=== PATIENT | female | born 1980 | race Caucasian/White ===

== ENCOUNTER 2019-07-20 14:00 | Inpatient (IN) | payer MEDICAID ==
[~2019-07-20] VITALS: Ht 160 cm; Wt 142.2 kg
[2019-07-20] MEDS: LEVOTHYROXINE 75 MCG TABLET PO SCH (06:00)
[2019-07-20 15:20] VITALS: BP 142/83
[2019-07-20] MEDS ORDERED: OMEP20TA63 PO (15:27)
[2019-07-20] MEDS ORDERED: ACYC800T PO (15:27)
[2019-07-20] MEDS ORDERED: TIZA4TAB2 PO (15:27)
[2019-07-20] MEDS ORDERED: PRAV40TA2 PO (15:27)
[2019-07-20] MEDS ORDERED: LEVO75TA PO (15:27)
[2019-07-20] MEDS: ACYCLOVIR 200 MG CAPSULE. PO SCH (15:59)
[2019-07-20] MEDS ORDERED: ACYCLOVIR 200 MG CAPSULE. PO SCH (16:00)
[2019-07-20] MEDS: amLODIPine BESYLATE 5 MG TABLET PO SCH (16:04)
[2019-07-20] MEDS: ASPIRIN ENTERIC COATED 325 MG TABLET.DR. PO SCH (16:04)
[2019-07-20] MEDS: PANTOPRAZOLE 40 MG TABLET.DR. PO SCH (16:05)
--- NOTE | 2019-07-20 16:23 | NUR ---
The patient, CARLO CAMPBELL, 39 y/o, F admitted by JAZZ FUNG MD, was given written information regarding hospital policies, unit procedures and contact persons. Valuables were checked and left with patient in room. Dr. Fung notified of admission. Dr. Taveras made aware of consult. Charge nurse completed stroke scale on admission. Nurse from [facility] reported that patient took 3 baby aspirins at [facility]. Patient reported taking daily medications this morning.
--- NOTE | 2019-07-20 17:08 | PDOC1 ---
History and Physical Date of Admission Date of Admission DATE: 07/20/19 TIME: 17:02 Source Source: Chart review, Patient History of Present Illness History of Present Illness Ms. Salter went to her primary care today, Dr. Elizabeth, who sent her to the ER due to new slow speech and possible facial droop. CT angio was done at [place], Dr. Frank called me for transfer, as patient may need neuro eval and MRI for acute change, new dysarthria. 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 No leg or arm weakness, some right favial weakness with sensation change to right side of face compliant with meds, Past Medical History Cardiovascular: HTN, Hyperlipidemia Psych: No pertinent hx Musculoskeletal: low back pain Social History Smoke: <1 pack per day ALCOHOL: rare Drugs: Other (quit meth) Current Medications Current Medications Current Medications Levothyroxine Sodium (Synthroid) 75 mcg DAILY06 PO ; Start 07/20/19 at 06:00 Tizanidine HCl (Zanaflex) 4 mg PRN TID PRN PO MUSCLE SPASMS; Start 07/20/19 at 15:45 Acyclovir (Zovirax) 200 mg DAILY PO ; Start 07/20/19 at 16:00; Stop 07/20/19 at 15:47; Status DC Pantoprazole Sodium (Protonix) 40 mg DAILYAC PO ; Start 07/20/19 at 16:30 Atorvastatin Calcium (Lipitor) 10 mg QHS PO ; Start 07/20/19 at 21:00 Aspirin (Ecotrin) 325 mg DAILYWBKFT PO ; Start 07/20/19 at 16:30 Amlodipine Besylate (Norvasc) 2.5 mg DAILY PO ; Start 07/20/19 at 16:30 Acyclovir (Zovirax) 800 mg DAILY PO ; Start 07/20/19 at 16:00 Active Scripts Active Reported Tizanidine Hcl 4 Mg Tablet 4 Mg PO TID PRN Acyclovir 800 Mg Tablet 800 Mg PO DAILY Pravastatin Sodium 40 Mg Tablet 40 Mg PO DAILY Prilosec Otc (Omeprazole Magnesium) 20 Mg Tablet. 20 Mg PO DAILY Synthroid (Levothyroxine Sodium) 75 Mcg Tablet 75 Mcg PO DAILYAC Allergies Allergies: Coded Allergies: pregabalin (Verified Allergy, Intermediate, 07/20/19) ROS General: YES: Fatigue, Malaise; No: Chills, Night Sweats, Appetite, Other PSYCHOLOGICAL ROS: YES: Sleep disturbances; No: Anxiety, Behavioral Disorder, Concentration difficultie, Decreased libido, Depression, Disorientation, Hallucinations, Hostility, Irritablity, Memory difficulties, Mood Swings, Obsessive thoughts, Physical abuse, Sexual abuse, Suicidal ideation, Other Eyes: No Blurry vision, No Decreased vision, No Double vision, No Dry eyes, No Excessive tearing, No Eye Pain, No Itchy Eyes, No Loss of vision, No Photophobia, No Scotomata, No Uses contacts, No Uses glasses, No Other HEENT: No: Heacaches, Visual Changes, Hearing change, Nasal congestion, Nasal discharge, Oral lesions, Sinus pain, Sore Throat, Epistaxis, Sneezing, Snoring, Tinnitus, Vertigo, Vocal changes, Other Respiratory: No: Cough, Hemoptysis, Orthopnea, Pleuritic Pain, Shortness of breath, SOB with excertion, Sputum Changes, Stridor, Tachypnea, Wheezing, Other Cardiovascular: No Chest Pain, No Palpitations, No Orthopnea, No Paroxysmal Noc. Dyspnea, No Edema, No Lt Headedness, No Other Gastrointestinal: No Nausea, No Vomiting, No Abdominal Pain, No Diarrhea, No Constipation, No Melena, No Hematochezia, No Other Genitourinary: No Dysuria, No Frequency, No Incontinence, No Hematuria, No Retention, No Discharge, No Urgency, No Pain, No Flank Pain, No Other, No , No , No , No , No , No , No Musculoskeletal: No Gait Disturbance, No Joint Pain, No Joint Stiffness, No Joint Swelling, No Muscle Pain, No Muscular Weakness, No Pain In:, No Swelling In:, No Other Neurological: Yes Numbness/Tingling, Yes Speech Problems; No Behavorial Changes, No Bowel/Bladder ControlChng, No Confusion, No Dizziness, No Gait Disturbance, No Headaches, No Impaired Coord/balance, No Memory Loss, No Seizures, No Tremors, No Visual Changes, No Weakness, No Other Skin: Yes Dry Skin; No Eczema, No Hair Changes, No Lumps, No Mole Changes, No Mottling, No Nail Changes, No Pruritus, No Rash, No Skin Lesion Changes, No Other, No Acne Physical Exam General: Alert, Oriented X3, Cooperative, No acute distress HEENT: Atraumatic, PERRLA, Mucous membr. moist/pink Lungs: Clear to auscultation, Normal air movement Heart: S1S2, no murmurs Abdomen: Soft (obese, ) Rectal Exam: not examined Extremities: No cyanosis, No edema Skin: No rashes Neuro: Normal speech Psych/Mental Status: Mental status NL, Mood NL Vitals Vitals Vital Signs Date Time Temp Pulse Resp B/P (MAP) Pulse Ox O2 Delivery O2 Flow Rate FiO2 07/20/19 15:27 Room Air 07/20/19 15:20 98.5 65 18 142/83 (102) 96 98.5 VTE Prophylaxis Ordered VTE Prophylaxis Devices: No VTE Pharmacological Prophylaxi: Yes Assessment/Plan Assessment/Plan new dysarthria, parathesisa face NIH stroke 5, consult neuro, MRI brain, cont statin, pt and ot and speech morbid obese admit JAZZ FUNG MD Jul 20, 2019 17:08
[2019-07-20] MEDS ORDERED: DOCUSATE SODIUM 100 MG CAPSULE. PO PRN (17:15)
[2019-07-20] MEDS ORDERED: ZOLPIDEM 5 MG TABLET. PO PRN (17:15)
[2019-07-20] MEDS: LIDOCAINE (700MG/PATCH) PATCH. TD SCH (17:59)
[2019-07-20 19:07] LABS: BASO # 0.1 x10^3/uL (0.0-0.2); BASO % 1 % (0-3); EOS # 0.2 x10^3/uL (0.0-0.7); EOS % 2 % (0-3); HEMATOCRIT 38.7 % (36.0-47.0); HEMOGLOBIN 13.1 g/dL (12.0-15.5); LYMPH # 2.2 x10^3/uL (1.0-4.8); LYMPH % 21 % (24-48); MEAN CORPUSCULAR HEMOGLOBIN 29 pg (25-35); MEAN CORPUSCULAR HGB CONC 34 g/dL (31-37); MEAN CORPUSCULAR VOLUME 86 fL (79-100); MONO # 0.5 x10^3/uL (0.0-1.1); MONO % 5 % (0-9); NEUT # 7.6 x10^3/uL (1.8-7.7); NEUT % 72 % (31-73); PLATELET COUNT 426 x10^3/uL (140-400); RED CELL DISTRIBUTION WIDTH 15.1 % (11.5-14.5); WHITE BLOOD COUNT 10.6 x10^3/uL (4.0-11.0)
[2019-07-20 19:22] LABS: ALBUMIN 3.3 g/dL (3.4-5.0); ALBUMIN/GLOBULIN RATIO 0.8 (1.0-1.7); CALCIUM 9.2 mg/dL (8.5-10.1); CREATININE 0.8 mg/dL (0.6-1.0); GFR 79.4; POTASSIUM 3.9 mmol/L (3.5-5.1); TOTAL BILIRUBIN 0.5 mg/dL (0.2-1.0); TOTAL PROTEIN 7.2 g/dL (6.4-8.2)
[2019-07-20 19:55] VITALS: BP 128/79
[2019-07-20] MEDS: ENOXAPARIN 40 MG/0.4 ML SYRINGE. SQ SCH (20:50)
[2019-07-20] MEDS ORDERED: ATORVASTATIN CALCIUM 10 MG TABLET. PO SCH (21:00)
[2019-07-20 23:06] VITALS: BP 117/76
[2019-07-21] MEDS ORDERED: MORPHINE SULFATE 4 MG/ML VIAL. IV PRN (02:15)
[2019-07-21] MEDS: fentaNYL PF VIAL 100 MCG/2 ML VIAL IVP PRN ×3 (02:36→09:10)
[2019-07-21 03:39] VITALS: BP 123/75
[2019-07-21] MEDS: PATCH REMOVAL. MC SCH ×2 (05:00→21:00)
[2019-07-21 05:25] LABS: CHOLESTEROL/HDL RATIO 8.3
[2019-07-21] MEDS: LEVOTHYROXINE 75 MCG TABLET PO SCH (05:36)
[2019-07-21 07:15] VITALS: BP 123/73
[2019-07-21] MEDS: PANTOPRAZOLE 40 MG TABLET.DR. PO SCH (07:30)
[2019-07-21] MEDS: LIDOCAINE (700MG/PATCH) PATCH. TD SCH (09:00)
[2019-07-21] MEDS ORDERED: HYDROcodone/APAP 10/325 1 TAB TABLET PO PRN (10:00)
[2019-07-21] MEDS ORDERED: GADOTERATE 7.5 MMOL/15ML VIAL. IVP ONE (10:15)
--- NOTE | 2019-07-21 10:16 | CONS ---
DATE OF CONSULTATION: 07/21/2019 ATTENDING PHYSICIAN: Yanna Durant MD REASON FOR CONSULTATION: The patient was seen at the request of Dr. Durant for rehab evaluation. HISTORY OF PRESENT ILLNESS: This is a 39-year-old female known to me. The patient is with chronic lower back pain from degenerative disk disease of lumbar vertebrae with right lumbar radiculitis. The patient was seen at [facility] on 07/20/2019 with slow speech of new onset and possible facial droop. CT angio was done at [facility]. The patient was transferred to [facility] for neurological evaluation and MRI scan. The patient was hospitalized at [facility] with similar problem in 2013, at that time was diagnosed as having cerebral vasculitis. The patient had a prior meth habit but stopped about 2 years ago. 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 The patient admits increased lower back pain since last night. PAST MEDICAL HISTORY: Includes hypertension and hyperlipidemia. She still smokes less than 1 pack of cigarettes per day. ALLERGIES: SHE IS KNOWN ALLERGIC TO PREGABALIN. MEDICATIONS: The patient apparently has been taking tizanidine for muscle spasm. PHYSICAL EXAMINATION: NEUROLOGIC: Today revealed young female. The patient is in no acute distress. She is alert and oriented to time, place, person, and circumstance and follows commands appropriately. She moves all 4 extremities voluntarily where she had 4+/5 grade muscle strength. Deep tendon reflexes are 1-2+ and symmetrical and she had equal perception of touch and pinprick sensation bilaterally. No obvious facial asymmetry or visual field cut noted. She had mild dysarthria. She had good coordination using both upper and lower extremities. She had tenderness to palpation over lumbar paraspinal muscles extending out to sacroiliac joint area and straight leg raising test is negative bilaterally. She is independent with bed mobility, transfers, and up walking. ASSESSMENT: Young female with chronic lower back pain with recent exacerbation. No clinical evidence of ongoing lumbar radiculopathy. The patient with new-onset mild dysarthria. The patient also with known hypertension, hyperlipidemia, smoker, obesity. RECOMMENDATIONS: Agreed the plans for physical therapy. Home when medically stable with outpatient followup. Dr. Durant, I appreciate asking me to participate in the care of this interesting patient. I will be glad to see her for followup with you on as needed basis. MYRIAM MOTLEY MD DR: PRICE/chasity JOB#: [id number] / [id number]
--- NOTE | 2019-07-21 10:55 | PDOC ---
[employer] PROGRESS NOTE Chief Complaint Chief Complaint Possible CVA History of Present Illness History of Present Illness Ms. Salter went to her primary care today, Dr. Elizabeth, who sent her to the ER due to new slow speech and possible facial droop. CT angio was done at [facility], Dr. Frank called me for transfer, as patient may need neuro eval and MRI for acute change, new dysarthria. 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 No leg or arm weakness, some right favial weakness with sensation change to right side of face compliant with meds Patient was seen and examined during his MRI. 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 Scan appeared to be negative for CVA. Awaiting input from neuro consult. Vitals/I&O Vitals/I&O: Vital Signs Date Time Temp Pulse Resp B/P (MAP) Pulse Ox O2 Delivery O2 Flow Rate FiO2 07/21/19 09:10 96 Room Air 07/21/19 07:15 98.9 73 18 123/73 (90) 98.9 I & O 07/20/19 07/20/19 07/21/19 15:00 23:00 07:00 Intake Total 0 ml Output Total 600 ml 600 ml Balance -600 ml -600 ml Physical Exam General: Alert, Oriented X3, Cooperative, No acute distress Heart: Regular rate, Normal S1, Normal S2, No murmurs Lungs: Clear Abdomen: Normal bowel sounds, Soft (obese, ), No tenderness, No hepatosplenomegaly Extremities: No clubbing, No cyanosis, No edema Skin: No rashes, No breakdown, No significant lesion Labs Labs: Laboratory Tests Test 07/20/19 18:50 07/21/19 03:20 White Blood Count 10.6 x10^3/uL (4.0-11.0) Red Blood Count 4.50 x10^6/uL (3.50-5.40) Hemoglobin 13.1 g/dL (12.0-15.5) Hematocrit 38.7 % (36.0-47.0) Mean Corpuscular Volume 86 fL (79-100) Mean Corpuscular Hemoglobin 29 pg (25-35) Mean Corpuscular Hemoglobin Concent 34 g/dL (31-37) Red Cell Distribution Width 15.1 % (11.5-14.5) Platelet Count 426 x10^3/uL (140-400) Neutrophils (%) (Auto) 72 % (31-73) Lymphocytes (%) (Auto) 21 % (24-48) Monocytes (%) (Auto) 5 % (0-9) Eosinophils (%) (Auto) 2 % (0-3) Basophils (%) (Auto) 1 % (0-3) Neutrophils # (Auto) 7.6 x10^3/uL (1.8-7.7) Lymphocytes # (Auto) 2.2 x10^3/uL (1.0-4.8) Monocytes # (Auto) 0.5 x10^3/uL (0.0-1.1) Eosinophils # (Auto) 0.2 x10^3/uL (0.0-0.7) Basophils # (Auto) 0.1 x10^3/uL (0.0-0.2) Sodium Level 140 mmol/L (136-145) Potassium Level 3.9 mmol/L (3.5-5.1) Chloride Level 102 mmol/L (98-107) Carbon Dioxide Level 26 mmol/L (21-32) Anion Gap 12 (6-14) Blood Urea Nitrogen 16 mg/dL (7-20) Creatinine 0.8 mg/dL (0.6-1.0) Estimated GFR (Cockcroft-Gault) 79.4 BUN/Creatinine Ratio 20 (6-20) Glucose Level 92 mg/dL (70-99) Calcium Level 9.2 mg/dL (8.5-10.1) Total Bilirubin 0.5 mg/dL (0.2-1.0) Aspartate Amino Transf (AST/SGOT) 16 U/L (15-37) Alanine Aminotransferase (ALT/SGPT) 23 U/L (14-59) Alkaline Phosphatase 55 U/L (46-116) Total Protein 7.2 g/dL (6.4-8.2) Albumin 3.3 g/dL (3.4-5.0) Albumin/Globulin Ratio 0.8 (1.0-1.7) Vitamin B12 Level 334 pg/mL (247-911) Thyroid Stimulating Hormone (TSH) 3.507 uIU/mL (0.358-3.74) Triglycerides Level 333 mg/dL (0-150) Cholesterol Level 248 mg/dL (0-200) LDL Cholesterol, Calculated 151 mg/dL (0-100) VLDL Cholesterol, Calculated 67 mg/dL (0-40) Non-HDL Cholesterol Calculated 218 mg/dL (0-129) HDL Cholesterol 30 mg/dL (40-60) Cholesterol/HDL Ratio 8.3 Review of Systems Review of Systems: Patient complains of generalized weakness. Patient denies SOB and N/V Assessment and Plan Assessmemt and Plan Assessment: Possible CVA, generalized motor weakness. Plan: 1. Cardiac monitoring 2. Await MRI report 3. await neuro consult 4. PT/OT 5. Labs 6. DVT prophylaxis 7. Full code Comment Review of Relevant I have reviewed the following items ghanshyam (where applicable) has been applied. Medications: Current Medications Medications (Trade) Dose Ordered Sig/Analia Route PRN Reason Start Time Stop Time Status Last Admin Dose Admin Lidocaine (Lidoderm) 1 patch DAILY TD 07/20/19 17:15 07/20/19 17:59 Miscellaneous (Lidoderm Patch Removal) 1 ea QHS MC 07/20/19 21:00 07/21/19 05:00 Enoxaparin Sodium (Lovenox 40mg Syringe) 40 mg Q24H SQ 07/20/19 21:00 07/20/19 20:50 Fentanyl Citrate (Fentanyl 2ml Vial) 50 mcg PRN Q2HR PRN IVP PAIN 07/21/19 02:30 07/21/19 09:10 Gadoterate Meglumine (Dotarem) 28 ml 1X ONCE IVP 07/21/19 10:15 07/21/19 10:16 DC 07/21/19 10:25 DEBRA GONZALEZ III DO Jul 21, 2019 10:55
[2019-07-21 11:00] VITALS: BP 144/75
--- NOTE | 2019-07-21 11:09 | RAD ---
BRAIN WO/W CONTRAST Date: 07/21/2019 5:00 AM Indication: Lower extremity weakness, stroke Comparison: CT 07/20/2019. Technique: Multiplanar multisequence MRI of the brain was performed with and without intravenous contrast using the standard protocol. 28 cc Dotarem contrast was administered intravenously during the exam. Findings: No acute infarct. No acute or chronic hemorrhage. The ventricles are normal in size and configuration without hydrocephalus. No abnormal enhancement. The scalp and calvarium are normal. The pituitary and sella are normal. Slightly low-lying cerebellar tonsils, not meeting criteria for Chiari malformation. The visualized upper cervical spine is normal. The visualized orbits and globes are normal. The visualized paranasal sinuses are clear. The mastoid air cells are clear. Normal flow voids within the vertebral, basilar, and internal carotid arteries indicating patency. IMPRESSION: 1. No acute infarct or hemorrhage. 2. No mass or abnormal enhancement. Electronically signed by: Vinny Portillo MD (07/21/2019 11:06 AM) [email or web address]
[2019-07-21] MEDS: ASPIRIN ENTERIC COATED 325 MG TABLET.DR. PO SCH (12:53)
[2019-07-21] MEDS: ACYCLOVIR 200 MG CAPSULE. PO SCH (12:54)
[2019-07-21] MEDS: amLODIPine BESYLATE 5 MG TABLET PO SCH (12:56)
--- NOTE | 2019-07-21 14:22 | PDOC2 ---
NEUROLOGY CONSULT Date of Admission Date of Admission DATE: 07/21/19 TIME: 14:02 Reason for Consult Reason for Consult: IMPRESSION: Slurred speech and stuttered speech. Dysarthsia.. Facial drooping? LE shaking. HTN. HLD. Smoking. Morbid obesity. Narcotics use/ Cognitive impairment. Back pain. No evidence of acute CVA this time. No evidence of MS or brain tumor. RECOMMENDATIONS/PLAN: ASA 325 mg daily. Lipitor 40 mg HS. Lab: see orders. Avoid narcotics. Smoking cessation. Weight reduction. FU with PCP. History of Present Illness This is a 39-year-old female patient who went to see her primary care on 07/20/19, Dr. Elizabeth, who sent her to the ER of [facility] due to new symptoms of slowed speech, dysarthsia, and possible facial droop. CT angio was done at [place]. Patient has history of admit at in about 2013 or 2014 and she said she was diagnosed with cerebral vasculitis. 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 She stated she has been having back pain and taking narcotics from time to time. No symptoms of headaches, diplopia, decreased vision, vomiting, focalized sensory or motor deficits. Past Medical History Cardiovascular: HTN, Hyperlipidemia Psych: No pertinent hx Musculoskeletal: low back pain PAST SURGERY HISTORY: No major surgery recently. Social History Smoke: <1 pack per day ALCOHOL: rare Drugs: Other (quit meth) Allergies Coded Allergies: Pregabalin (Verified Allergy, Intermediate, 07/20/19) MEDICATIONS: Refer to [facility] FAMILY HISTORY: Non contributory. SOCIAL HISTORY: Lives at home. Denies illicit drug use. She smokes < 1 pack of cigarettes a day for many years. She drinks alcohol occasionally. REVIEW OF SYSTEMS: Constitutional: Morbid obese. Head: No traumatic brain or head injury. Skin: No edema, or rash. Ear: No infection. Eyes: No vision loss or color blindness. Nose: No bleeding or purulent discharges. Hearing: No hearing decrease. Neck: No injury. Breast: No history of cancer, masses,or discharges. Cardiac: HTN, HLD. Pulmonary: Smoking. GI: No GI ulcer, GI bleeding. Urinary/genital: UTI. Endocrinologic: Morbid obesity. Skeletomuscular: No muscular atrophy. Neurological: see HP. Psychiatric: Denies current drug use/abuse. Otherwise, not [id number] review of systems. PHYSICAL EXAMINATION: General appearance is in subacute distress. HEENT: Normocephalic and nontraumatic. Eyes, nose, ears, and throat are unremarkable. Neck is supple. No lymphadenopathy. No bruits are heard over the carotid artery. No crepitus. Cardiovascular: S1, S2, regular rate and rhythm. Pulmonary: Clear to auscultation bilaterally. Abdomen: Bowel sounds are positive. Abdomen is soft, nontender, and nondistended. Extremities: No rash, lesions, or edema. No restriction of range of motion NEUROLOGICAL EXAMINATION: Alert Oriented to time, place and person. PERRL. EOMI. CN: no focal findings. Muscle tone: within normal. Muscle strength: 5 DTR: 2 Plantar reflex: Flexor response bilaterally Gait: At baseline normal. Sensory exam: no abnormal findings. No cerebellar signs elicited. F-T-N test accurate. Current Medications Current Medications Current Medications Levothyroxine Sodium (Synthroid) 75 mcg DAILY06 PO ; Start 07/20/19 at 06:00 Tizanidine HCl (Zanaflex) 4 mg PRN TID PRN PO MUSCLE SPASMS; Start 07/20/19 at 15:45 Acyclovir (Zovirax) 200 mg DAILY PO ; Start 07/20/19 at 16:00; Stop 07/20/19 at 15:47; Status DC Pantoprazole Sodium (Protonix) 40 mg DAILYAC PO ; Start 07/20/19 at 16:30 Atorvastatin Calcium (Lipitor) 10 mg QHS PO ; Start 07/20/19 at 21:00; Stop 07/21/19 at 10:44; Status DC Aspirin (Ecotrin) 325 mg DAILYWBKFT PO Last administered on 07/21/19at 12:53; Start 07/20/19 at 16:30 Amlodipine Besylate (Norvasc) 2.5 mg DAILY PO Last administered on 07/21/19at 12:56; Start 07/20/19 at 16:30 Acyclovir (Zovirax) 800 mg DAILY PO Last administered on 07/21/19at 12:54; Start 07/20/19 at 16:00 Enoxaparin Sodium (Lovenox Per Pharmacy Prophylaxis Dosing) 1 each PRN DAILY PRN MC SEE COMMENTS; Start 07/20/19 at 17:15 Docusate Sodium (Colace) 100 mg PRN DAILY PRN PO CONSTIPATION; Start 07/20/19 at 17:15 Zolpidem Tartrate (Ambien) 5 mg PRN QHS PRN PO INSOMNIA, MAY REPEAT IN 1HR; Start 07/20/19 at 17:15 Lidocaine (Lidoderm) 1 patch DAILY TD Last administered on 07/20/19at 17:59; Start 07/20/19 at 17:15 Miscellaneous (Lidoderm Patch Removal) 1 ea QHS MC Last administered on 07/21/19at 05:00; Start 07/20/19 at 21:00 Enoxaparin Sodium (Lovenox 40mg Syringe) 40 mg Q24H SQ Last administered on 07/20/19at 20:50; Start 07/20/19 at 21:00 Morphine Sulfate (Morphine Sulfate) 4 mg PRN Q2HR PRN IV PAIN; Start 07/21/19 at 02:15; Stop 07/21/19 at 02:26; Status DC Fentanyl Citrate (Fentanyl 2ml Vial) 50 mcg PRN Q2HR PRN IVP PAIN Last administered on 07/21/19at 09:10; Start 07/21/19 at 02:30 Acetaminophen/ Hydrocodone Bitart (Lortab 10/325) 1 tab PRN Q6HRS PRN PO SEVERE PAIN Last administered on 07/21/19at 12:54; Start 07/21/19 at 10:00 Tramadol HCl (Ultram) 100 mg PRN Q6HRS PRN PO MODERATE PAIN; Start 07/21/19 at 10:00 Gadoterate Meglumine (Dotarem) 28 ml 1X ONCE IVP Last administered on 07/21/19at 10:25; Start 07/21/19 at 10:15; Stop 07/21/19 at 10:16; Status DC Atorvastatin Calcium (Lipitor) 40 mg QHS PO ; Start 07/21/19 at 21:00 Active Scripts Active Reported Tizanidine Hcl 4 Mg Tablet 4 Mg PO TID PRN Acyclovir 800 Mg Tablet 800 Mg PO DAILY Pravastatin Sodium 40 Mg Tablet 40 Mg PO DAILY Prilosec Otc (Omeprazole Magnesium) 20 Mg Tablet.dr 20 Mg PO DAILY Synthroid (Levothyroxine Sodium) 75 Mcg Tablet 75 Mcg PO DAILYAC Allergies Allergies: Allergies Coded Allergies Type Severity Reaction Last Updated Verified pregabalin Allergy Intermediate 07/20/19 Yes ROS Review of System The patient denies any associated fevers, chills, headache, ear pain, rhinorrhea, sore throat, stiff neck, productive cough, chest pain, shortness of breath, back or flank pain, abdominal pain, nausea, vomiting, diarrhea, constipation, dysuria, rash, numbness, weakness, tingling, incontinence, difficulty ambulating, or diaphoresis. Physical Exam Physical Exam General: Well developed, well nourished, no acute distress, well appearing HEENT: Pupils equally round and reactive to light, EOMI, no discharge, normal conjunctiva Neck: Supple, no nuchal rigidity, no JVD, trachea midline, no tenderness Cardiac: RRR, no murmurs, no gallops, no rubs Chest/Lungs: CTAB, no wheeze, no rhonchi, no crackles Abdomen: soft, non-distended, no guarding, no peritoneal signs, non-tender Back: No tenderness Extremities: no edema, pulses intact, non-tender,capillary refill <3 sec bilateral upper and lower extremities, Neuro: Alert and oriented x 4, no focal deficits, normal speech Vitals Vitals: Vital Signs Date Time Temp Pulse Resp B/P (MAP) Pulse Ox O2 Delivery O2 Flow Rate FiO2 07/21/19 12:56 83 144/75 07/21/19 12:54 98 Room Air 07/21/19 11:00 97.8 16 97.8 Labs Labs Laboratory Tests Test 07/20/19 18:50 07/21/19 03:20 White Blood Count 10.6 x10^3/uL (4.0-11.0) Red Blood Count 4.50 x10^6/uL (3.50-5.40) Hemoglobin 13.1 g/dL (12.0-15.5) Hematocrit 38.7 % (36.0-47.0) Mean Corpuscular Volume 86 fL (79-100) Mean Corpuscular Hemoglobin 29 pg (25-35) Mean Corpuscular Hemoglobin Concent 34 g/dL (31-37) Red Cell Distribution Width 15.1 % (11.5-14.5) Platelet Count 426 x10^3/uL (140-400) Neutrophils (%) (Auto) 72 % (31-73) Lymphocytes (%) (Auto) 21 % (24-48) Monocytes (%) (Auto) 5 % (0-9) Eosinophils (%) (Auto) 2 % (0-3) Basophils (%) (Auto) 1 % (0-3) Neutrophils # (Auto) 7.6 x10^3/uL (1.8-7.7) Lymphocytes # (Auto) 2.2 x10^3/uL (1.0-4.8) Monocytes # (Auto) 0.5 x10^3/uL (0.0-1.1) Eosinophils # (Auto) 0.2 x10^3/uL (0.0-0.7) Basophils # (Auto) 0.1 x10^3/uL (0.0-0.2) Sodium Level 140 mmol/L (136-145) Potassium Level 3.9 mmol/L (3.5-5.1) Chloride Level 102 mmol/L (98-107) Carbon Dioxide Level 26 mmol/L (21-32) Anion Gap 12 (6-14) Blood Urea Nitrogen 16 mg/dL (7-20) Creatinine 0.8 mg/dL (0.6-1.0) Estimated GFR (Cockcroft-Gault) 79.4 BUN/Creatinine Ratio 20 (6-20) Glucose Level 92 mg/dL (70-99) Calcium Level 9.2 mg/dL (8.5-10.1) Total Bilirubin 0.5 mg/dL (0.2-1.0) Aspartate Amino Transf (AST/SGOT) 16 U/L (15-37) Alanine Aminotransferase (ALT/SGPT) 23 U/L (14-59) Alkaline Phosphatase 55 U/L (46-116) Total Protein 7.2 g/dL (6.4-8.2) Albumin 3.3 g/dL (3.4-5.0) Albumin/Globulin Ratio 0.8 (1.0-1.7) Vitamin B12 Level 334 pg/mL (247-911) Thyroid Stimulating Hormone (TSH) 3.507 uIU/mL (0.358-3.74) Triglycerides Level 333 mg/dL (0-150) Cholesterol Level 248 mg/dL (0-200) LDL Cholesterol, Calculated 151 mg/dL (0-100) VLDL Cholesterol, Calculated 67 mg/dL (0-40) Non-HDL Cholesterol Calculated 218 mg/dL (0-129) HDL Cholesterol 30 mg/dL (40-60) Cholesterol/HDL Ratio 8.3 Laboratory Tests Test 07/20/19 18:50 07/21/19 03:20 White Blood Count 10.6 x10^3/uL (4.0-11.0) Red Blood Count 4.50 x10^6/uL (3.50-5.40) Hemoglobin 13.1 g/dL (12.0-15.5) Hematocrit 38.7 % (36.0-47.0) Mean Corpuscular Volume 86 fL (79-100) Mean Corpuscular Hemoglobin 29 pg (25-35) Mean Corpuscular Hemoglobin Concent 34 g/dL (31-37) Red Cell Distribution Width 15.1 % (11.5-14.5) Platelet Count 426 x10^3/uL (140-400) Neutrophils (%) (Auto) 72 % (31-73) Lymphocytes (%) (Auto) 21 % (24-48) Monocytes (%) (Auto) 5 % (0-9) Eosinophils (%) (Auto) 2 % (0-3) Basophils (%) (Auto) 1 % (0-3) Neutrophils # (Auto) 7.6 x10^3/uL (1.8-7.7) Lymphocytes # (Auto) 2.2 x10^3/uL (1.0-4.8) Monocytes # (Auto) 0.5 x10^3/uL (0.0-1.1) Eosinophils # (Auto) 0.2 x10^3/uL (0.0-0.7) Basophils # (Auto) 0.1 x10^3/uL (0.0-0.2) Sodium Level 140 mmol/L (136-145) Potassium Level 3.9 mmol/L (3.5-5.1) Chloride Level 102 mmol/L (98-107) Carbon Dioxide Level 26 mmol/L (21-32) Anion Gap 12 (6-14) Blood Urea Nitrogen 16 mg/dL (7-20) Creatinine 0.8 mg/dL (0.6-1.0) Estimated GFR (Cockcroft-Gault) 79.4 BUN/Creatinine Ratio 20 (6-20) Glucose Level 92 mg/dL (70-99) Calcium Level 9.2 mg/dL (8.5-10.1) Total Bilirubin 0.5 mg/dL (0.2-1.0) Aspartate Amino Transf (AST/SGOT) 16 U/L (15-37) Alanine Aminotransferase (ALT/SGPT) 23 U/L (14-59) Alkaline Phosphatase 55 U/L (46-116) Total Protein 7.2 g/dL (6.4-8.2) Albumin 3.3 g/dL (3.4-5.0) Albumin/Globulin Ratio 0.8 (1.0-1.7) Vitamin B12 Level 334 pg/mL (247-911) Thyroid Stimulating Hormone (TSH) 3.507 uIU/mL (0.358-3.74) Triglycerides Level 333 mg/dL (0-150) Cholesterol Level 248 mg/dL (0-200) LDL Cholesterol, Calculated 151 mg/dL (0-100) VLDL Cholesterol, Calculated 67 mg/dL (0-40) Non-HDL Cholesterol Calculated 218 mg/dL (0-129) HDL Cholesterol 30 mg/dL (40-60) Cholesterol/HDL Ratio 8.3 WILD ZHANG MD Jul 21, 2019 14:22
[2019-07-21 15:00] VITALS: BP_SYST 107; BP_SYST 143; BP_DIAS 53; BP_DIAS 74
[2019-07-21] MEDS: tiZANidine 4 MG TABLET. PO PRN (16:37)
[2019-07-21] MEDS: traMADol 50 MG TABLET PO PRN (19:10)
[2019-07-21 19:54] VITALS: BP 121/74
[2019-07-21] MEDS ORDERED: ATORVASTATIN CALCIUM 40 MG TABLET. PO SCH (21:00)
[2019-07-21] MEDS: ENOXAPARIN 40 MG/0.4 ML SYRINGE. SQ SCH (21:17)
[2019-07-21 23:51] VITALS: BP 123/71
[2019-07-22 03:00] VITALS: BP_SYST 125
[2019-07-22 05:14] LABS: BASO % 0 % (0-3); EOS # 0.1 x10^3/uL (0.0-0.7); EOS % 2 % (0-3); HEMATOCRIT 38.1 % (36.0-47.0); HEMOGLOBIN 12.8 g/dL (12.0-15.5); LYMPH # 2.1 x10^3/uL (1.0-4.8); LYMPH % 24 % (24-48); MEAN CORPUSCULAR HEMOGLOBIN 29 pg (25-35); MEAN CORPUSCULAR HGB CONC 34 g/dL (31-37); MEAN CORPUSCULAR VOLUME 86 fL (79-100); MONO # 0.7 x10^3/uL (0.0-1.1); MONO % 7 % (0-9); NEUT # 6.1 x10^3/uL (1.8-7.7); NEUT % 67 % (31-73); PLATELET COUNT 384 x10^3/uL (140-400); RED BLOOD COUNT 4.41 x10^6/uL (3.50-5.40); RED CELL DISTRIBUTION WIDTH 15.1 % (11.5-14.5); WHITE BLOOD COUNT 9.1 x10^3/uL (4.0-11.0)
[2019-07-22 05:28] LABS: ALBUMIN 3.2 g/dL (3.4-5.0); ALBUMIN/GLOBULIN RATIO 0.8 (1.0-1.7); CALCIUM 8.7 mg/dL (8.5-10.1); CREATININE 0.9 mg/dL (0.6-1.0); GFR 69.3; POTASSIUM 3.8 mmol/L (3.5-5.1); TOTAL BILIRUBIN 0.3 mg/dL (0.2-1.0)
[2019-07-22 07:00] VITALS: BP 114/75
[2019-07-22] MEDS: traMADol 50 MG TABLET PO PRN (07:29)
[2019-07-22] MEDS: tiZANidine 4 MG TABLET. PO PRN (07:29)
[2019-07-22] MEDS: LEVOTHYROXINE 75 MCG TABLET PO SCH (07:29)
[2019-07-22] MEDS ORDERED: HYDR-2769 PO (07:54)
[2019-07-22] MEDS ORDERED: LIDO700A21 TD (07:54)
[2019-07-22] MEDS ORDERED: ASPI325T11 PO (07:54)
[2019-07-22] MEDS ORDERED: AMLO5TAB10 PO (07:54)
[2019-07-22] MEDS: PANTOPRAZOLE 40 MG TABLET.DR. PO SCH (08:18)
[2019-07-22] MEDS: ASPIRIN ENTERIC COATED 325 MG TABLET.DR. PO SCH (08:18)
[2019-07-22] MEDS: amLODIPine BESYLATE 5 MG TABLET PO SCH (08:19)
--- NOTE | 2019-07-22 08:40 | PDOC3 ---
Discharge Summary Visit Information Date of Admission: Jul 20, 2019 Date of Discharge: Jul 22, 2019 Admitting Diagnosis Comment: slow speech, ? facial droop resolved, NEG MRI Obesity Hypothy on synthroid with TSH at goal HTN - started on norvasc 2,5 Brief Hospital Course Allergies Allergies Coded Allergies Type Severity Reaction Last Updated Verified pregabalin Allergy Intermediate 07/20/19 Yes Vital Signs Vital Signs Date Time Temp Pulse Resp B/P (MAP) Pulse Ox O2 Delivery O2 Flow Rate FiO2 07/22/19 08:19 67 114/75 07/22/19 07:29 Room Air 07/22/19 07:00 98.0 18 95 98.0 Lab Results Laboratory Tests Test 07/20/19 18:50 07/21/19 03:20 07/22/19 03:05 White Blood Count 10.6 x10^3/uL (4.0-11.0) 9.1 x10^3/uL (4.0-11.0) Red Blood Count 4.50 x10^6/uL (3.50-5.40) 4.41 x10^6/uL (3.50-5.40) Hemoglobin 13.1 g/dL (12.0-15.5) 12.8 g/dL (12.0-15.5) Hematocrit 38.7 % (36.0-47.0) 38.1 % (36.0-47.0) Mean Corpuscular Volume 86 fL (79-100) 86 fL (79-100) Mean Corpuscular Hemoglobin 29 pg (25-35) 29 pg (25-35) Mean Corpuscular Hemoglobin Concent 34 g/dL (31-37) 34 g/dL (31-37) Red Cell Distribution Width 15.1 % (11.5-14.5) 15.1 % (11.5-14.5) Platelet Count 426 x10^3/uL (140-400) 384 x10^3/uL (140-400) Neutrophils (%) (Auto) 72 % (31-73) 67 % (31-73) Lymphocytes (%) (Auto) 21 % (24-48) 24 % (24-48) Monocytes (%) (Auto) 5 % (0-9) 7 % (0-9) Eosinophils (%) (Auto) 2 % (0-3) 2 % (0-3) Basophils (%) (Auto) 1 % (0-3) 0 % (0-3) Neutrophils # (Auto) 7.6 x10^3/uL (1.8-7.7) 6.1 x10^3/uL (1.8-7.7) Lymphocytes # (Auto) 2.2 x10^3/uL (1.0-4.8) 2.1 x10^3/uL (1.0-4.8) Monocytes # (Auto) 0.5 x10^3/uL (0.0-1.1) 0.7 x10^3/uL (0.0-1.1) Eosinophils # (Auto) 0.2 x10^3/uL (0.0-0.7) 0.1 x10^3/uL (0.0-0.7) Basophils # (Auto) 0.1 x10^3/uL (0.0-0.2) 0.0 x10^3/uL (0.0-0.2) Sodium Level 140 mmol/L (136-145) 138 mmol/L (136-145) Potassium Level 3.9 mmol/L (3.5-5.1) 3.8 mmol/L (3.5-5.1) Chloride Level 102 mmol/L (98-107) 101 mmol/L (98-107) Carbon Dioxide Level 26 mmol/L (21-32) 28 mmol/L (21-32) Anion Gap 12 (6-14) 9 (6-14) Blood Urea Nitrogen 16 mg/dL (7-20) 16 mg/dL (7-20) Creatinine 0.8 mg/dL (0.6-1.0) 0.9 mg/dL (0.6-1.0) Estimated GFR (Cockcroft-Gault) 79.4 69.3 BUN/Creatinine Ratio 20 (6-20) 18 (6-20) Glucose Level 92 mg/dL (70-99) 109 mg/dL (70-99) Calcium Level 9.2 mg/dL (8.5-10.1) 8.7 mg/dL (8.5-10.1) Total Bilirubin 0.5 mg/dL (0.2-1.0) 0.3 mg/dL (0.2-1.0) Aspartate Amino Transf (AST/SGOT) 16 U/L (15-37) 17 U/L (15-37) Alanine Aminotransferase (ALT/SGPT) 23 U/L (14-59) 23 U/L (14-59) Alkaline Phosphatase 55 U/L (46-116) 56 U/L (46-116) Total Protein 7.2 g/dL (6.4-8.2) 7.0 g/dL (6.4-8.2) Albumin 3.3 g/dL (3.4-5.0) 3.2 g/dL (3.4-5.0) Albumin/Globulin Ratio 0.8 (1.0-1.7) 0.8 (1.0-1.7) Vitamin B12 Level 334 pg/mL (247-911) Thyroid Stimulating Hormone (TSH) 3.507 uIU/mL (0.358-3.74) Triglycerides Level 333 mg/dL (0-150) Cholesterol Level 248 mg/dL (0-200) LDL Cholesterol, Calculated 151 mg/dL (0-100) VLDL Cholesterol, Calculated 67 mg/dL (0-40) Non-HDL Cholesterol Calculated 218 mg/dL (0-129) HDL Cholesterol 30 mg/dL (40-60) Cholesterol/HDL Ratio 8.3 Laboratory Tests Test 07/22/19 03:05 White Blood Count 9.1 x10^3/uL (4.0-11.0) Red Blood Count 4.41 x10^6/uL (3.50-5.40) Hemoglobin 12.8 g/dL (12.0-15.5) Hematocrit 38.1 % (36.0-47.0) Mean Corpuscular Volume 86 fL (79-100) Mean Corpuscular Hemoglobin 29 pg (25-35) Mean Corpuscular Hemoglobin Concent 34 g/dL (31-37) Red Cell Distribution Width 15.1 % (11.5-14.5) Platelet Count 384 x10^3/uL (140-400) Neutrophils (%) (Auto) 67 % (31-73) Lymphocytes (%) (Auto) 24 % (24-48) Monocytes (%) (Auto) 7 % (0-9) Eosinophils (%) (Auto) 2 % (0-3) Basophils (%) (Auto) 0 % (0-3) Neutrophils # (Auto) 6.1 x10^3/uL (1.8-7.7) Lymphocytes # (Auto) 2.1 x10^3/uL (1.0-4.8) Monocytes # (Auto) 0.7 x10^3/uL (0.0-1.1) Eosinophils # (Auto) 0.1 x10^3/uL (0.0-0.7) Basophils # (Auto) 0.0 x10^3/uL (0.0-0.2) Sodium Level 138 mmol/L (136-145) Potassium Level 3.8 mmol/L (3.5-5.1) Chloride Level 101 mmol/L (98-107) Carbon Dioxide Level 28 mmol/L (21-32) Anion Gap 9 (6-14) Blood Urea Nitrogen 16 mg/dL (7-20) Creatinine 0.9 mg/dL (0.6-1.0) Estimated GFR (Cockcroft-Gault) 69.3 BUN/Creatinine Ratio 18 (6-20) Glucose Level 109 mg/dL (70-99) Calcium Level 8.7 mg/dL (8.5-10.1) Total Bilirubin 0.3 mg/dL (0.2-1.0) Aspartate Amino Transf (AST/SGOT) 17 U/L (15-37) Alanine Aminotransferase (ALT/SGPT) 23 U/L (14-59) Alkaline Phosphatase 56 U/L (46-116) Total Protein 7.0 g/dL (6.4-8.2) Albumin 3.2 g/dL (3.4-5.0) Albumin/Globulin Ratio 0.8 (1.0-1.7) Brief Hospital Course Ms. Salter is a 39 old [sex] who presented with [ ] She came in for slowed speech and facial droop which i did not appreciate (I assume care on day of dc). MRI neg, co managed with neuro Colleague started very low dose norvasc 2,5 for HTN and BP 120s systolic, Also on synthroid and tsh at goal. Needed some norco rx from me, claims lidoderm patc h not working, NO pT needs per there eval, Home today independent on norvasc, asa, norco, synthroid and needs to lose weight Proc; MRI brain - neg COnsults: neuro dc < 30 Discharge Information Condition at Discharge: Improved, Stable Disposition/Orders: D/C to Home Scheduled Acyclovir (Acyclovir) 800 Mg Tablet, 800 MG PO DAILY for herpes preventative, (Reported) Entered as Reported by: LELIA ADDISON on 07/20/191526 Last Action: Converted on 07/20/191540 by JAZZ FUNG Amlodipine Besylate (Amlodipine Besylate) 5 Mg Tablet, 2.5 MG PO DAILY for htn, #60 Prescribed by: FELI THOMASON on 07/22/19 0754 Aspirin (Aspirin Ec) 325 Mg Tablet., 325 MG PO DAILYWBKFT for primary prevention for 60 Days, #60 Prescribed by: FELI THOMASON on 07/22/19 0754 Levothyroxine Sodium (Synthroid) 75 Mcg Tablet, 75 MCG PO DAILYAC for THYROID SUPPLEMENT, #30 Ref 0 (Reported) Entered as Reported by: LELIA ADDISON on 07/20/191526 Last Action: Continued on 07/20/191540 by JAZZ FUNG Lidocaine (Lidocaine PATCH ) 1 Each Adh..patch, 1 PATCH TD DAILY for pain, #10 Prescribed by: FELI THOMASON on 07/22/19 075 Omeprazole Magnesium (Prilosec Otc) 20 Mg Tablet.dr, 20 MG PO DAILY for GERD, (Reported) Entered as Reported by: LELIA ADDISON on 07/20/191526 Last Action: Converted on 07/20/191540 by JAZZ FUNG Pravastatin Sodium (Pravastatin Sodium) 40 Mg Tablet, 40 MG PO DAILY for high cholesterol, (Reported) Entered as Reported by: LELIA ADDISON on 07/20/191526 Last Action: Converted on 07/20/191540 by JAZZ FUNG Scheduled PRN Hydrocodone Bit/Acetaminophen (Hydrocodone-Apap 10-325 ) 1 Tab Tablet, 1 TAB PO PRN Q6HRS PRN for SEVERE PAIN, #20 Prescribed by: FELI THOMASON on 07/22/19 0754 Tizanidine Hcl (Tizanidine Hcl) 4 Mg Tablet, 4 MG PO TID PRN for MUSCLE SPASMS, (Reported) Entered as Reported by: LELIA ADDISON on 07/20/19 1527 Last Action: Continued on 07/20/191540 by FELI JUAREZ MD Jul 22, 2019 08:39
[2019-07-22] MEDS: LIDOCAINE (700MG/PATCH) PATCH. TD SCH (09:00)
--- NOTE | 2019-07-22 09:12 | PDOC ---
PROGRESS NOTES Subjective Subjective She admits continued low back pain. Objective Objective Vital Signs Date Time Temp Pulse Resp B/P (MAP) Pulse Ox O2 Delivery O2 Flow Rate FiO2 07/22/19 08:30 19 95 Room Air 07/22/19 08:19 67 114/75 07/22/19 07:00 98.0 98.0 Intake and Output 07/22/19 07:00 Intake Total 840 ml Output Total 800 ml Balance 40 ml Intake Oral 840 ml Output Urine Total 800 ml # Voids 2 Physical Exam Physical Exam She is alert,supine in bed and continues with tenderness to palpation over lumbar paraspinal muscles and sacroiliac joints with painfully limited lumbar spine ROM and SLR test is negative bilaterally and she is independent with bed mobility,transfers and walking at bedside. Plan Plan of Shelter when medically stable with out patient follow up and to consider trigger point injections to her back if pain persists. Comment Review of Relevant I have reviewed the following items ghanshyam (where applicable) has been applied. Labs Laboratory Tests Test 07/20/19 18:50 07/21/19 03:20 07/22/19 03:05 White Blood Count 10.6 x10^3/uL (4.0-11.0) 9.1 x10^3/uL (4.0-11.0) Red Blood Count 4.50 x10^6/uL (3.50-5.40) 4.41 x10^6/uL (3.50-5.40) Hemoglobin 13.1 g/dL (12.0-15.5) 12.8 g/dL (12.0-15.5) Hematocrit 38.7 % (36.0-47.0) 38.1 % (36.0-47.0) Mean Corpuscular Volume 86 fL (79-100) 86 fL (79-100) Mean Corpuscular Hemoglobin 29 pg (25-35) 29 pg (25-35) Mean Corpuscular Hemoglobin Concent 34 g/dL (31-37) 34 g/dL (31-37) Red Cell Distribution Width 15.1 % (11.5-14.5) 15.1 % (11.5-14.5) Platelet Count 426 x10^3/uL (140-400) 384 x10^3/uL (140-400) Neutrophils (%) (Auto) 72 % (31-73) 67 % (31-73) Lymphocytes (%) (Auto) 21 % (24-48) 24 % (24-48) Monocytes (%) (Auto) 5 % (0-9) 7 % (0-9) Eosinophils (%) (Auto) 2 % (0-3) 2 % (0-3) Basophils (%) (Auto) 1 % (0-3) 0 % (0-3) Neutrophils # (Auto) 7.6 x10^3/uL (1.8-7.7) 6.1 x10^3/uL (1.8-7.7) Lymphocytes # (Auto) 2.2 x10^3/uL (1.0-4.8) 2.1 x10^3/uL (1.0-4.8) Monocytes # (Auto) 0.5 x10^3/uL (0.0-1.1) 0.7 x10^3/uL (0.0-1.1) Eosinophils # (Auto) 0.2 x10^3/uL (0.0-0.7) 0.1 x10^3/uL (0.0-0.7) Basophils # (Auto) 0.1 x10^3/uL (0.0-0.2) 0.0 x10^3/uL (0.0-0.2) Sodium Level 140 mmol/L (136-145) 138 mmol/L (136-145) Potassium Level 3.9 mmol/L (3.5-5.1) 3.8 mmol/L (3.5-5.1) Chloride Level 102 mmol/L (98-107) 101 mmol/L (98-107) Carbon Dioxide Level 26 mmol/L (21-32) 28 mmol/L (21-32) Anion Gap 12 (6-14) 9 (6-14) Blood Urea Nitrogen 16 mg/dL (7-20) 16 mg/dL (7-20) Creatinine 0.8 mg/dL (0.6-1.0) 0.9 mg/dL (0.6-1.0) Estimated GFR (Cockcroft-Gault) 79.4 69.3 BUN/Creatinine Ratio 20 (6-20) 18 (6-20) Glucose Level 92 mg/dL (70-99) 109 mg/dL (70-99) Calcium Level 9.2 mg/dL (8.5-10.1) 8.7 mg/dL (8.5-10.1) Total Bilirubin 0.5 mg/dL (0.2-1.0) 0.3 mg/dL (0.2-1.0) Aspartate Amino Transf (AST/SGOT) 16 U/L (15-37) 17 U/L (15-37) Alanine Aminotransferase (ALT/SGPT) 23 U/L (14-59) 23 U/L (14-59) Alkaline Phosphatase 55 U/L (46-116) 56 U/L (46-116) Total Protein 7.2 g/dL (6.4-8.2) 7.0 g/dL (6.4-8.2) Albumin 3.3 g/dL (3.4-5.0) 3.2 g/dL (3.4-5.0) Albumin/Globulin Ratio 0.8 (1.0-1.7) 0.8 (1.0-1.7) Vitamin B12 Level 334 pg/mL (247-911) Thyroid Stimulating Hormone (TSH) 3.507 uIU/mL (0.358-3.74) Triglycerides Level 333 mg/dL (0-150) Cholesterol Level 248 mg/dL (0-200) LDL Cholesterol, Calculated 151 mg/dL (0-100) VLDL Cholesterol, Calculated 67 mg/dL (0-40) Non-HDL Cholesterol Calculated 218 mg/dL (0-129) HDL Cholesterol 30 mg/dL (40-60) Cholesterol/HDL Ratio 8.3 Laboratory Tests Test 07/22/19 03:05 White Blood Count 9.1 x10^3/uL (4.0-11.0) Red Blood Count 4.41 x10^6/uL (3.50-5.40) Hemoglobin 12.8 g/dL (12.0-15.5) Hematocrit 38.1 % (36.0-47.0) Mean Corpuscular Volume 86 fL (79-100) Mean Corpuscular Hemoglobin 29 pg (25-35) Mean Corpuscular Hemoglobin Concent 34 g/dL (31-37) Red Cell Distribution Width 15.1 % (11.5-14.5) Platelet Count 384 x10^3/uL (140-400) Neutrophils (%) (Auto) 67 % (31-73) Lymphocytes (%) (Auto) 24 % (24-48) Monocytes (%) (Auto) 7 % (0-9) Eosinophils (%) (Auto) 2 % (0-3) Basophils (%) (Auto) 0 % (0-3) Neutrophils # (Auto) 6.1 x10^3/uL (1.8-7.7) Lymphocytes # (Auto) 2.1 x10^3/uL (1.0-4.8) Monocytes # (Auto) 0.7 x10^3/uL (0.0-1.1) Eosinophils # (Auto) 0.1 x10^3/uL (0.0-0.7) Basophils # (Auto) 0.0 x10^3/uL (0.0-0.2) Sodium Level 138 mmol/L (136-145) Potassium Level 3.8 mmol/L (3.5-5.1) Chloride Level 101 mmol/L (98-107) Carbon Dioxide Level 28 mmol/L (21-32) Anion Gap 9 (6-14) Blood Urea Nitrogen 16 mg/dL (7-20) Creatinine 0.9 mg/dL (0.6-1.0) Estimated GFR (Cockcroft-Gault) 69.3 BUN/Creatinine Ratio 18 (6-20) Glucose Level 109 mg/dL (70-99) Calcium Level 8.7 mg/dL (8.5-10.1) Total Bilirubin 0.3 mg/dL (0.2-1.0) Aspartate Amino Transf (AST/SGOT) 17 U/L (15-37) Alanine Aminotransferase (ALT/SGPT) 23 U/L (14-59) Alkaline Phosphatase 56 U/L (46-116) Total Protein 7.0 g/dL (6.4-8.2) Albumin 3.2 g/dL (3.4-5.0) Albumin/Globulin Ratio 0.8 (1.0-1.7) Medications Current Medications Levothyroxine Sodium (Synthroid) 75 mcg DAILY06 PO Last administered on 07/22/19at 07:29; Start 07/20/19 at 06:00 Tizanidine HCl (Zanaflex) 4 mg PRN TID PRN PO MUSCLE SPASMS Last administered on 07/22/19 07:29; Start 07/20/19 at 15:45 Acyclovir (Zovirax) 200 mg DAILY PO ; Start 07/20/19 at 16:00; Stop 07/20/19 at 15:47; Status DC Pantoprazole Sodium (Protonix) 40 mg DAILYAC PO Last administered on 07/22/19at 08:18; Start 07/20/19 at 16:30 Atorvastatin Calcium (Lipitor) 10 mg QHS PO ; Start 07/20/19 at 21:00; Stop at 10:44; Status DC Aspirin (Ecotrin) 325 mg DAILYWBKFT PO Last administered on 07/22/19at 08:18; Start 07/20/19 at 16:30 Amlodipine Besylate (Norvasc) 2.5 mg DAILY PO Last administered on 07/22/19at 08:19; Start 07/20/19 at 16:30 Acyclovir (Zovirax) 800 mg DAILY PO Last administered on 07/21/19at 12:54; Start 07/20/19 at 16:00 Enoxaparin Sodium (Lovenox Per Pharmacy Prophylaxis Dosing) 1 each PRN DAILY PRN MC SEE COMMENTS; Start 07/20/19 at 17:15 Docusate Sodium (Colace) 100 mg PRN DAILY PRN PO CONSTIPATION; Start 07/20/19 at 17:15 Zolpidem Tartrate (Ambien) 5 mg PRN QHS PRN PO INSOMNIA, MAY REPEAT IN 1HR; Start 07/20/19 at 17:15 Lidocaine (Lidoderm) 1 patch DAILY TD Last administered on 07/20/19at 17:59; Start 07/20/19 at 17:15 Miscellaneous (Lidoderm Patch Removal) 1 ea QHS MC Last administered on 07/21/19at 05:00; Start 07/20/19 at 21:00 Enoxaparin Sodium (Lovenox 40mg Syringe) 40 mg Q24H SQ Last administered on 07/21/19at 21:17; Start 07/20/19 at 21:00 Morphine Sulfate (Morphine Sulfate) 4 mg PRN Q2HR PRN IV PAIN; Start 07/21/19 at 02:15; Stop 07/21/19 at 02:26; Status DC Fentanyl Citrate (Fentanyl 2ml Vial) 50 mcg PRN Q2HR PRN IVP PAIN Last administered on 07/21/19at 09:10; Start 07/21/19 at 02:30 Acetaminophen/ Hydrocodone Bitart (Lortab 10/325) 1 tab PRN Q6HRS PRN PO SEVERE PAIN Last administered on 07/21/19at 12:54; Start 07/21/19 at 10:00 Tramadol HCl (Ultram) 100 mg PRN Q6HRS PRN PO MODERATE PAIN Last administered on 07/22/19 07:29; Start 07/21/19 at 10:00 Gadoterate Meglumine (Dotarem) 28 ml 1X ONCE IVP Last administered on 07/21/19at 10:25; Start 07/21/19 at 10:15; Stop 07/21/19 at 10:16; Status DC Atorvastatin Calcium (Lipitor) 40 mg QHS PO Last administered on 07/21/19at 21:17; Start 07/21/19 at 21:00 Active Scripts Active Hydrocodone-Apap 10-325 (Hydrocodone Bit/Acetaminophen) 1 Tab Tablet 1 Tab PO PRN Q6HRS PRN Lidocaine PATCH (Lidocaine) 1 Each Adh..patch 1 Patch TD DAILY Aspirin Ec (Aspirin) 325 Mg Tablet. 325 Mg PO DAILYWBKFT 60 Days Amlodipine Besylate 5 Mg Tablet 2.5 Mg PO DAILY Reported Tizanidine Hcl 4 Mg Tablet 4 Mg PO TID PRN Acyclovir 800 Mg Tablet 800 Mg PO DAILY Pravastatin Sodium 40 Mg Tablet 40 Mg PO DAILY Prilosec Otc (Omeprazole Magnesium) 20 Mg Tablet. 20 Mg PO DAILY Synthroid (Levothyroxine Sodium) 75 Mcg Tablet 75 Mcg PO DAILYAC Vitals/I & O Vital Sign - Last 24 Hours 07/21/19 07/21/19 07/21/19 07/21/19 09:10 11:00 12:54 12:56 Temp 97.8 97.8 Pulse 83 83 Resp 16 B/P (MAP) 144/75 (98) 144/75 Pulse Ox 96 98 98 O2 Delivery Room Air Room Air Room Air 07/21/19 07/21/19 07/21/19 07/21/19 14:25 14:26 15:00 19:54 Temp 98.1 97.9 98.1 97.9 Pulse 75 78 Resp 16 16 B/P (MAP) 107/53 (71) 121/74 (90) Pulse Ox 98 98 97 95 O2 Delivery Room Air Room Air Room Air Room Air 07/21/19 07/21/19 07/21/19 07/22/19 20:00 20:10 23:51 03:00 Temp 98.5 98.8 98.5 98.8 Pulse 75 69 Resp 16 16 B/P (MAP) 123/71 (88) 125/ Pulse Ox 94 95 O2 Delivery Room Air Room Air Room Air Room Air 07/22/19 07/22/19 07/22/19 07/22/19 07:00 07:29 08:19 08:30 Temp 98.0 98.0 Pulse 67 67 Resp 18 19 B/P (MAP) 114/75 (88) 114/75 Pulse Ox 95 95 O2 Delivery Room Air Room Air Room Air Intake and Output 07/21/19 07/21/19 07/22/19 15:00 23:00 07:00 Intake Total 300 ml 540 ml Output Total 300 ml 200 ml 300 ml Balance -300 ml 100 ml 240 ml MYRIAM MOTLEY MD Jul 22, 2019 09:12
[2019-07-22] MEDS: ACYCLOVIR 200 MG CAPSULE. PO SCH (10:04)
[2019-07-22 10:55] VITALS: BP 121/76
--- NOTE | 2019-07-22 12:55 | NUR ---
Discharge Note: RIKA CAMPBELL [facility] Discharge instructions and discharge home medications reviewed with patient and a copy given. All questions have been answered and understanding verbalized. The following instructions and handouts were given: Prescriptions for lortab, lidocaine patch, amlodipine and aspirin. Handouts on hypertension, stroke prevention, back pain and obesity. Watch out for worsening of symptoms, call MD. To follow up with PCP in a week. Discontinued lines and drains: peripheral IV intact, patient tolerated removal, no complications noted . Patient discharged to home with self care accompanied by family member at 1130.
== END 2019-07-22 11:30 | disposition home or self-care (01) | DRG 92 ==
LOC: 6 SOUTH 15:00
PROVIDERS: ADMIT Internal Medicine; ATTEND Internal Medicine
DX: R29.810 Facial weakness (principal); Z68.43 Body mass index [BMI] 50.0-59.9, adult; M54.89 Other dorsalgia; Z88.8 Allergy status to other drugs, medicaments and biological substances; E66.01 Morbid (severe) obesity due to excess calories; I10 Essential (primary) hypertension; E78.5 Hyperlipidemia, unspecified; F17.210 Nicotine dependence, cigarettes, uncomplicated; E03.9 Hypothyroidism, unspecified; G89.29 Other chronic pain; R47.1 Dysarthria and anarthria; Z79.82 Long term (current) use of aspirin; Z79.899 Other long term (current) drug therapy
CPT/HCPCS: 36415; 70553; 80053; 80061; 82607; 84443; 85025; A9575; J1650; J3010; 92610; 97110; 97116; G0378